=== PATIENT | female | born 1975 | race Caucasian/White ===

== ENCOUNTER 2018-11-26 18:37 | Emergency (ER) | payer OTHER ==
[~2018-11-26] VITALS: Ht 172.7 cm; Wt 165.6 kg
[2018-11-26] MEDS ORDERED: TOPROL XL50 M1 (18:57)
[2018-11-26] MEDS ORDERED: LISINOPRIL10 MG (18:58)
[2018-11-26] MEDS ORDERED: HYDROCHLOROTH12.5 MG (18:58)
== END 2018-11-26 21:01 | disposition home or self-care (01) ==
LOC: ER 18:37
DX: S90.01XA Contusion of right ankle, initial encounter (principal); M65.271 Calcific tendinitis, right ankle and foot; W18.09XA Striking against other object with subsequent fall, initial encounter; Y93.89 Activity, other specified; Y92.59 Other trade areas as the place of occurrence of the external cause; Y99.8 Other external cause status

== ENCOUNTER 2024-10-03 19:15 | Emergency (ER) | payer OTHER ==
[~2024-10-03] VITALS: Ht 172.7 cm; Wt 163.3 kg
[~2024-10-03 19:15] MED LIST: HYDROCHLOROTH12.5 MG; LISINOPRIL10 MG; TOPROL XL50 M1
[2024-10-03] MEDS ORDERED: AMLODIPINE-OLM1 EAC2 (19:24)
[2024-10-03] MEDS ORDERED: CEFTRIAXONE SODIUM 1,000 MG VIAL IM ONE (20:30)
[2024-10-03] MEDS ORDERED: KETOROLAC TROMETHAMINE 60 MG VIAL IM ONE ×2 (20:30→20:51)
[2024-10-03] MEDS ORDERED: CEFTRIAXONE SODIUM 1,000 MG VIAL ONE (20:51)
[2024-10-03] MEDS ORDERED: CEPHALEXIN500 M1 PO (21:33)
[2024-10-03] MEDS ORDERED: CEFTRIAXONE SODIUM 1,000 MG VIAL IV ONE (21:45)
== END 2024-10-03 22:32 ==
LOC: ER 19:17
DX: L03.116 Cellulitis of left lower limb (principal); I10 Essential (primary) hypertension

== ENCOUNTER 2025-02-16 14:55 | Emergency (ER) | payer OTHER ==
[~2025-02-16] VITALS: Ht 172.7 cm; Wt 174.6 kg
[~2025-02-16 14:55] MED LIST changes: +AMLODIPINE-OLM1 EAC2; +CEPHALEXIN500 M1 PO
[2025-02-16] MEDS ORDERED: KETOROLAC TROMETHAMINE 60 MG VIAL IM ONE ×2 (17:06→17:15)
[2025-02-16] MEDS ORDERED: PROTONIX40 MG PO (17:06)
[2025-02-16] MEDS ORDERED: AVIDOXY100 MG PO (17:06)
== END 2025-02-16 17:31 | disposition home or self-care (01) ==
LOC: ER 14:55
DX: L02.611 Cutaneous abscess of right foot (principal); L03.115 Cellulitis of right lower limb

== ENCOUNTER 2025-02-20 10:09 | Outpatient (CLI) | payer OTHER ==
[~2025-02-20 10:09] MED LIST changes: +AVIDOXY100 MG PO; +PROTONIX40 MG PO
== END 2025-02-20 10:10 | disposition home or self-care (01) ==
LOC: NUCLEAR 10:09
PROVIDERS: ATTEND Specialist
DX: I87.2 Venous insufficiency (chronic) (peripheral) (principal)

== ENCOUNTER → 2025-02-23 11:01 | Outpatient (CLI) | payer OTHER | END | disposition home or self-care (01) | LOC: NUCLEAR 11:00 | PROVIDERS: ATTEND Specialist | DX: I73.9 Peripheral vascular disease, unspecified (principal) ==